=== PATIENT | male | born 1975 | race Asian ===

== ENCOUNTER 2016-11-10 10:37 | Emergency (ER) | payer BC ==
[~2016-11-10] VITALS: Ht 180.3 cm; Wt 85.0 kg
[2016-11-10] MEDS ORDERED: KETOROLAC 60MG/2ML VIAL IM ONE (11:45)
[2016-11-10 11:56] VITALS: BP 133/87
== END 2016-11-10 13:20 | disposition home or self-care (01) ==
LOC: ER 10:47
DX: M54.5 Low back pain (principal); V49.9XXA Car occupant (driver) (passenger) injured in unspecified traffic accident, initial encounter; Y93.89 Activity, other specified; Y92.89 Other specified places as the place of occurrence of the external cause; Y99.8 Other external cause status
CPT/HCPCS: 72100; 96372; 99284; J1885